=== PATIENT | male | born 1960 | race Caucasian/White ===

== ENCOUNTER 2018-04-06 11:43 | Emergency (ER) | payer OTHER ==
[2018-04-06 12:26] VITALS: BP 146/94
== END 2018-04-06 12:26 | disposition home or self-care (01) ==
LOC: ED 11:43
DX: I16.0 Hypertensive urgency (principal); Z71.6 Tobacco abuse counseling; J44.9 Chronic obstructive pulmonary disease, unspecified
CPT/HCPCS: 99406

== ENCOUNTER 2019-08-18 20:36 | Emergency (ER) | payer OTHER ==
[~2019-08-18] VITALS: Ht 175.3 cm; Wt 86.2 kg
[2019-08-18 20:54] VITALS: Ht 175.3 cm; Wt 86.2 kg
[2019-08-18 22:28] VITALS: BP 128/78
== END 2019-08-18 22:29 | disposition home or self-care (01) ==
LOC: ED 20:36
DX: F10.129 Alcohol abuse with intoxication, unspecified (principal); I10 Essential (primary) hypertension; J44.9 Chronic obstructive pulmonary disease, unspecified